=== PATIENT | female | born 1995 | race African-American/Black ===

== ENCOUNTER 2018-04-14 16:17 | Emergency (ER) | payer MEDICAID ==
[~2018-04-14] VITALS: Ht 165.1 cm; Wt 68.4 kg
[2018-04-14] MEDS ORDERED: ACETAMINOPHEN 325MG TABLET PO ONE (17:00)
[2018-04-14 18:37] VITALS: BP 110/65
== END 2018-04-15 07:59 | disposition home or self-care (01) ==
LOC: ER 16:18
DX: R51 Headache (principal); R56.9 Unspecified convulsions; F12.10 Cannabis abuse, uncomplicated; D64.9 Anemia, unspecified
CPT/HCPCS: 81025; 99283